=== PATIENT | female | born 1995 | race Caucasian/White ===

== ENCOUNTER 2018-11-24 16:22 | Inpatient (IN) | payer BC ==
[2018-11-24] MEDS ORDERED: Nalbuphine 20 MG/ML 1 ML Syringe IVPUSH PRN (17:10)
[2018-11-24] MEDS ORDERED: Ondansetron 4 MG/2 ML SDV IVPUSH PRN ×2 (17:10→19:25)
[2018-11-24] MEDS ORDERED: Sodium Chloride 0.9% 10 ML Syringe FLUSH PRN (17:10)
[2018-11-24] MEDS ORDERED: Oxytocin/Lactated Ringers 10 UNIT/1,000 ML BAG IV SCH ×2 (17:15→23:00)
--- NOTE | 2018-11-24 17:25 | PCM.LDHP ---
L&D History of Present Illness - General Date of Service: 11/24/18 Admit Problem/Dx: Patient Status Order with Admit Dx/Problem 11/24/18 17:10 Patient Status [ADT] Routine Admission Diagnosis/Problem Admission Diagnosis/Problem Source of Information: Patient History Limitations: Reports: No Limitations - History of Present Illness Introduction:: Patient is a 23 y/o at 40 0/7 wks who presents in labor. Contraction started around 0300. THey ahve gotten steadily worse throughout the day. Started to become very intense around 1500. No LOF or VB. No other concerns. 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): Psychiatric History: Reports: Anxiety Social & Family History - Tobacco Use Smoking Status *Q: Never Smoker - Alcohol Use Alcohol Use History: No - Recreational Drug Use Recreational Drug Use: No H&P Review of Systems - Review of Systems: Review Of Systems: See Below General: Reports: No Symptoms Pulmonary: Reports: No Symptoms Cardiovascular: Reports: No Symptoms Gastrointestinal: Reports: Abdominal Pain Genitourinary: Reports: No Symptoms Musculoskeletal: Reports: No Symptoms L&D Exam - Exam Exam: See Below - Vital Signs Weight: 93.304 kg - OB Specific Contraction Intensity: Moderate Movement: Active Heart Tones: Present Heart Tones per Min: 155 Heart Rate (FHR) Variability: Moderate (6-25 bmp) Presentation: Vertex - Lim Score Lim Score Cervix Position: Anterior Lim Score Consistency: Soft Lim Score Effacement: >80% Lim Score Dilation: > 5 cm Lim Score 's Station: -1 ,0 Lim Score Total: 12 - Exam General: Alert, Oriented, Cooperative Lungs: Clear to Auscultation, Normal Respiratory Effort Cardiovascular: Regular Rate, Regular Rhythm GI/Abdominal Exam: Soft, Non-Tender Genitourinary: Normal external exam Extremities: Normal Inspection Skin: Warm, Dry, Intact - Patient Data Result Diagrams: 11/24/18 17:25 - Problem List (1) 40 weeks gestation of SNOMED Code(s): 19193455 ICD Code: Z3A.40 - 40 WEEKS GESTATION OF Status: Acute Current Visit: Yes (2) Normal labor SNOMED Code(s): 38383536 ICD Code: O80 - ENCOUNTER FOR FULL-TERM UNCOMPLICATED DELIVERY; Z37.9 - OUTCOME OF DELIVERY, UNSPECIFIED Status: Acute Current Visit: Yes (3) Anxiety SNOMED Code(s): 07271669 ICD Code: F41.9 - ANXIETY DISORDER, UNSPECIFIED Status: Acute Current Visit: Yes Problem List Initiated/Reviewed/Updated: Yes Orders Last 24hrs: Active Orders 24 hr Category Date Time Status Patient Status [ADT] Routine ADT 11/24/18 17:10 Active Activity as Tolerated [RC] PFP Care 11/24/18 17:10 Active Communication Order [RC] ASDIRECTED Care 11/24/18 17:10 Active Heart Tones [RC] ASDIRECTED Care 11/24/18 17:11 Active Non Stress Test [RC] PER UNIT ROUTINE Care 11/24/18 17:10 Active Notify Provider [RC] PFP Care 11/24/18 17:10 Active Notify Provider [RC] PRN Care 11/24/18 17:10 Active Peripheral IV Care [RC] . DIRECTED Care 11/24/18 17:11 Active Pump Management, Intrathecal [RC] ASDIRECTED Care 11/24/18 17:11 Active Urinary Catheter Assessment [RC] ASDIRECTED Care 11/24/18 17:10 Active Vital Signs [RC] PER UNIT ROUTINE Care 11/24/18 17:10 Active Regular Diet [DIET] Diet 11/24/18 Breakfast Active CBC WITH AUTO DIFF [HEME] Routine Lab 11/24/18 17:10 Ordered RAPID PLASMA REAGIN,RPR [CHEM] Routine Lab 11/24/18 17:10 Ordered TYPE AND SCREEN [BBK] Routine Lab 11/24/18 17:10 Ordered Lactated Ringers [Ringers, Lactated] 1,000 ml Med 11/24/18 17:15 Active IV ASDIRECTED Nalbuphine [Nubain] Med 11/24/18 17:10 Active 10 mg IVPUSH Q2H PRN Ondansetron [Zofran] Med 11/24/18 17:10 Active 4 mg IVPUSH Q4H PRN Oxytocin/Lactated Ringers [Pitocin in LR 10 Units/1,000 Med 11/24/18 17:15 Active ML] 10 unit in 1,000 ml IV .CONTINUOUS Sodium Chloride 0.9% [Saline Flush] Med 11/24/18 17:10 Active 10 ml FLUSH ASDIRECTED PRN Electronic Heart Tones Ext w TOCO [WOMSER] Oth 11/24/18 17:10 Ordered Routine Electronic Heart Tones Internal [WOMSER] Per Unit Oth 11/24/18 17:10 Ordered Routine Peripheral IV Insertion Adult [OM.PC] Routine Oth 11/24/18 17:10 Ordered Resuscitation Status Routine Resus Stat 11/24/18 17:10 Ordered Medication Orders Lactated Ringer's (Ringers, Lactated) 1,000 mls @ 100 mls/hr IV ASDIRECTED ROBIN Oxytocin/Lactated Ringer's (Pitocin In Lr 10 Units/1,000 Ml) 10 unit in 1,000 mls @ 500 mls/hr IV .CONTINUOUS ROBIN Nalbuphine HCl (Nubain) 10 mg IVPUSH Q2H PRN PRN Reason: pain Ondansetron HCl (Zofran) 4 mg IVPUSH Q4H PRN PRN Reason: Nausea/Vomiting Sodium Chloride (Saline Flush) 10 ml FLUSH ASDIRECTED PRN PRN Reason: Keep Vein Open Assessment/Plan Comment:: 23 y/o at 40 0/7 wks who presents in labor * Labs on admission * GBS negative, no need for antibiotics * Pain management per patient preference * Anticipate * Continue Lexapro
[2018-11-24] MEDS: Lactated Ringers 1,000 ML IV SCH ×4 (18:25→21:08)
[2018-11-24] MEDS ORDERED: ePHEDrine 50 MG/ML SDV IVPUSH PRN (19:25)
[2018-11-24] MEDS ORDERED: diphenhydrAMINE 50 MG/ML SDV IVPUSH PRN (19:25)
[2018-11-24] MEDS ORDERED: fentaNYL 100 MCG/2 ML SDV EPIDUR PRN (19:25)
[2018-11-24] MEDS: fentaNYL/Bupivacaine-NS 2 MCG/ML-0.125%/PF 100 ML Bag EP SCH (20:01)
--- NOTE | 2018-11-24 20:04 | PCM.PREANE ---
Preanesthetic Assessment - Anesthesia/Transfusion/Family Hx Anesthesia History: No Prior Anesthesia Family History of Anesthesia Reaction: No Transfusion History: No Prior Transfusion(s) - Review of Systems General: No Symptoms Pulmonary: No Symptoms Cardiovascular: No Symptoms Gastrointestinal: Other (Occasional while laying down in bed. ) Neurological: No Symptoms Other: Reports: Anxiety - Physical Assessment O2 Sat by Pulse Oximetry: 98 Respiratory Rate: 16 Vital Signs: Last Vital Signs Temp 36.8 C 11/24/18 17:10 Pulse 106 H 11/24/18 17:10 Resp 16 11/24/18 17:10 BP 136/99 H 11/24/18 17:10 Pulse Ox Height: 1.63 m Weight: 93.304 kg ASA Class: 2 Mental Status: Alert & Oriented x3 Dentition: Reports: Normal Dentition Thyro-Mental Finger Breadths: 3 Mouth Opening Finger Breadths: 3 ROM/Head Extension: Full Lungs: Clear to Auscultation, Normal Respiratory Effort Cardiovascular: Regular Rate, Regular Rhythm - Lab Values: Laboratory Last Values WBC 15.29 K/mm3 (3.98-10.04) H 11/24/18 17:25 RBC 5.09 M/mm3 (3.98-5.22) 11/24/18 17:25 Hgb 13.2 gm/L (11.2-15.7) 11/24/18 17:25 Hct 39.8 % (34.1-44.9) 11/24/18 17:25 MCV 78.2 fl (79.4-94.8) L 11/24/18 17:25 MCH 25.9 pg (25.6-32.2) 11/24/18 17:25 MCHC 33.2 g/dl (32.2-35.5) 11/24/18 17:25 RDW Std Deviation 56.3 fL (36.4-46.3) H 11/24/18 17:25 Plt Count 440 K/mm3 (182-369) H 11/24/18 17:25 MPV 9.4 fl (9.4-12.3) 11/24/18 17:25 Neut % (Auto) 83.4 % (34.0-71.1) H 11/24/18 17:25 Lymph % (Auto) 9.5 % (19.3-51.7) L 11/24/18 17:25 [place] % (Auto) 6.3 % (4.7-12.5) 11/24/18 17:25 Eos % (Auto) 0.3 (0.7-5.8) L 11/24/18 17:25 Baso % (Auto) 0.1 % (0.1-1.2) 11/24/18 17:25 Neut # (Auto) 12.75 K/mm3 (1.56-6.13) H 11/24/18 17:25 Lymph # (Auto) 1.46 K/mm3 (1.18-3.74) 11/24/18 17:25 [place] # (Auto) 0.96 K/mm3 (0.24-0.36) H 11/24/18 17:25 Eos # (Auto) 0.04 K/mm3 (0.04-0.36) 11/24/18 17: Baso # (Auto) 0.02 K/mm3 (0.01-0.08) 11/24/18 17:25 Manual Slide Review Normal smear 11/24/18 17:25 Blood Type A POSITIVE 11/24/18 17: Gel Antibody Screen Negative 11/24/18 17:25 - Allergies Allergies/Adverse Reactions: Allergies Allergy/AdvReac Type Severity Reaction Status Date / Time No Known Allergies Allergy Verified 03/31/15 15:56 - Acknowledgements Anesthesia Type Planned: Epidural Pt an Appropriate Candidate for the Planned Anesthesia: Yes Alternatives and Risks of Anesthesia Discussed w Pt/Guardian: Yes Pt/Guardian Understands and Agrees with Anesthesia Plan: Yes PreAnesthesia Questionnaire - Past Health History Medical/Surgical History: Denies 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: Psychiatric History: Reports: Anxiety - SUBSTANCE USE Smoking Status *Q: Never Smoker Second Hand Smoke Exposure: No Recreational Drug Use History: No - HOME MEDS Home Medications: Home Meds Escitalopram [Lexapro] 1 tab PO DAILY 11/24/18 [History] PNV95/Ferrous Fumarate/FA [ Vitamin Tablet] 1 tab PO DAILY 11/24/18 [ History] - CURRENT (IN HOUSE) MEDS Current Meds: Current Medications Diphenhydramine HCl (Benadryl) 25 mg IVPUSH Q6H PRN PRN Reason: Pruritis Ephedrine Sulfate (Ephedrine Sulfate) 5 mg IVPUSH ASDIRECTED PRN PRN Reason: Hypotension Fentanyl (Sublimaze) 100 mcg EPIDUR ONETIME PRN PRN Reason: Pain Last Admin: 11/24/18 19:57 Dose: 100 mcg Fentanyl/Bupivacaine HCl (Nsueghkn-Dndmh-Xo 2 Mcg/Ml-0.125%) 100 ml EP ASDIRECTED [facility] Last Admin: 11/24/18 20:01 Dose: 100 ml Lactated Ringer's (Ringers, Lactated) 1,000 mls @ 100 mls/hr IV ASDIRECTED [facility] Last Admin: 11/24/18 19:24 Dose: 999 mls/hr Oxytocin/Lactated Ringer's (Pitocin In Lr 10 Units/1,000 Ml) 10 unit in 1,000 mls @ 500 mls/hr IV .CONTINUOUS [facility] Nalbuphine HCl (Nubain) 10 mg IVPUSH Q2H PRN PRN Reason: pain Ondansetron HCl (Zofran) 4 mg IVPUSH Q4H PRN PRN Reason: Nausea/Vomiting Ondansetron HCl (Zofran) 4 mg IVPUSH ONETIME PRN PRN Reason: Nausea/Vomiting Sodium Chloride (Saline Flush) 10 ml FLUSH ASDIRECTED PRN PRN Reason: Keep Vein Open
[2018-11-24] MEDS ORDERED: Lidocaine 1.5% with EPINEPHrine 1:200,000 5 ML Amp ONE (22:00)
[2018-11-24] MEDS ORDERED: Bupivacaine 0.25% 10 ML SDV ONE (22:00)
[2018-11-25] MEDS: Lactated Ringers 1,000 ML IV SCH ×2 (00:12→01:03)
[2018-11-25] MEDS: fentaNYL/Bupivacaine-NS 2 MCG/ML-0.125%/PF 100 ML Bag EP SCH (01:41)
--- NOTE | 2018-11-25 01:51 | PCM.PNLD ---
Labor Progress Note - VS & Meds Vital Signs: Last Vital Signs Temp 36.8 C 11/24/18 17:10 Pulse 99 11/25/18 00:30 Resp 16 11/24/18 20:03 BP 125/75 11/25/18 00:30 Pulse Ox 98 11/24/18 20:03 Active Medications: Current Medications Diphenhydramine HCl (Benadryl) 25 mg IVPUSH Q6H PRN PRN Reason: Pruritis Ephedrine Sulfate (Ephedrine Sulfate) 5 mg IVPUSH ASDIRECTED PRN PRN Reason: Hypotension Fentanyl (Sublimaze) 100 mcg EPIDUR ONETIME PRN PRN Reason: Pain Last Admin: 11/24/18 19:57 Dose: 100 mcg Fentanyl/Bupivacaine HCl (Dnjzqeqo-Gwqyc-Ud 2 Mcg/Ml-0.125%) 100 ml EP ASDIRECTED ROBIN Last Admin: 11/25/18 01:41 Dose: 100 ml Lactated Ringer's (Ringers, Lactated) 1,000 mls @ 100 mls/hr IV ASDIRECTED ROBIN Last Admin: 11/25/18 01:03 Dose: 125 mls/hr Oxytocin/Lactated Ringer's (Pitocin In Lr 10 Units/1,000 Ml) 10 unit in 1,000 mls @ 500 mls/hr IV .CONTINUOUS ROBIN Oxytocin/Lactated Ringer's (Pitocin In Lr 10 Units/1,000 Ml) 10 unit in 1,000 mls @ 12 mls/hr IV TITRATE ROBIN; Protocol Last Titration: 11/25/18 00:05 Dose: 0 munits/min, 0 mls/hr Nalbuphine HCl (Nubain) 10 mg IVPUSH Q2H PRN PRN Reason: pain Ondansetron HCl (Zofran) 4 mg IVPUSH Q4H PRN PRN Reason: Nausea/Vomiting Ondansetron HCl (Zofran) 4 mg IVPUSH ONETIME PRN PRN Reason: Nausea/Vomiting Sodium Chloride (Saline Flush) 10 ml FLUSH ASDIRECTED PRN PRN Reason: Keep Vein Open Discontinued Medications Oxytocin 10 unit/ Lactated (Ringer's) 1,001 mls @ 12.01 mls/hr IV TITRATE ROBIN; Protocol - Uterine Contractions Uterine Monitoring Mode: External [place] Contraction Intensity: Moderate to Strong - Monitoring Monitor Mode: External Ultrasound Heart Rate (FHR) Variability: Moderate (6-25 bmp) Accelerations: Present, 15x15 Decelerations: Early, Late (rare), Variable Strip Review: Category II - Vaginal Exam Dilation (cm): 9 Effacement (Percent): 90 Station: -1 Cervical Position: Anterior - Labor Progress (Free Text) Labor Progress: 0115 In to assess patient. Was called by nursing staff at 1215 that there was a prolonged deceleration into the 90's. Pitocin off and baby recovered. I presented to AROM patient, but she had actually SROM'd about 20 minutes prior to my arrival. On review of tracing however I had concerns for possible intermittent and possible small time of recurrent late decelerations. At the current time variability is moderate and only early type decelerations noted. Was going to place an IUPC, but patient found to be 9 cm, but potentially asynclitic position. Decision instead made to put patient in hands/knees. Will continue to monitor status closely
--- NOTE | 2018-11-25 04:26 | PCM.DEL ---
L & D Note - General Info Date of Service: 11/25/18 - Delivery Note Labor: Augmented by ARM, Augmented by Oxytocin Delivery Outcome: Livebirth Infant Delivery Method: Spontaneous Vaginal Delivery-Single Delivery Mode: Spontaneous Presentation: Right Occiput Anterior (KAREEN) Nuchal Cord: None Anesthesia Type: Epidural Amniotic Fluid Description: Clear Episiotomy Type: None Laceration: 2nd Degree, Labial (left sided) Suture type: Vicryl Suture size: 2-0 Placenta: Intact, Spontaneous Cord: 3 Vessels Estimated Blood Loss: 200 Resuscitation Needed: Yes : Bulb Syringe, Stimulated, Warmed, [place] Used, Warmer Used Delivery Comments (Free Text/Narrative):: Patient found to be complete and began pushing. With maternal pushing effort head delivered from an KAREEN presentation. No nuchal cord present. With gentle downward traction the shoulders and body delivered. placed on maternal abdomen. Cord clamped and cut. Cord blood obtained. Placenta allowed time to separate and expelled intact. Inspection of the perineum showed a 2nd degree laceration which was repaired with a 2-0 vicryl in the typical fashion. - General Info Date of Service: 11/25/18 - Patient Data Vitals - Most Recent: Last Vital Signs Temp 36.8 C 11/24/18 17:10 Pulse 99 11/25/18 00:30 Resp 16 11/24/18 20:03 BP 125/75 11/25/18 00:30 Pulse Ox 98 11/24/18 20:03 Weight - Most Recent: 93.304 kg I&O - Last 24 Hours: Intake & Output 11/24/18 11/24/18 11/25/18 14:59 22:59 06:59 Intake Total 1000 3000 Balance 1000 3000 Lab Results Last 24 Hours: Laboratory Results - last 24 hr 11/24/18 11/24/18 Range/Units 17:25 17:25 WBC 15.29 H (3.98-10.04) K/mm3 RBC 5.09 (3.98-5.22) M/mm3 Hgb 13.2 (11.2-15.7) gm/L Hct 39.8 (34.1-44.9) % MCV 78.2 L (79.4-94.8) fl MCH 25.9 (25.6-32.2) pg MCHC 33.2 (32.2-35.5) g/dl RDW Std Deviation 56.3 H (36.4-46.3) fL Plt Count 440 H (182-369) K/mm3 MPV 9.4 (9.4-12.3) fl Neut % (Auto) 83.4 H (34.0-71.1) % Lymph % (Auto) 9.5 L (19.3-51.7) % [place] % (Auto) 6.3 (4.7-12.5) % Eos % (Auto) 0.3 L (0.7-5.8) Baso % (Auto) 0.1 (0.1-1.2) % Neut # (Auto) 12.75 H (1.56-6.13) K/mm3 Lymph # (Auto) 1.46 (1.18-3.74) K/mm3 [place] # (Auto) 0.96 H (0.24-0.36) K/mm3 Eos # (Auto) 0.04 (0.04-0.36) K/mm3 Baso # (Auto) 0.02 (0.01-0.08) K/mm3 Manual Slide Review Normal smear Blood Type A POSITIVE Gel Antibody Screen Negative Med Orders - Current: Current Medications Diphenhydramine HCl (Benadryl) 25 mg IVPUSH Q6H PRN PRN Reason: Pruritis Ephedrine Sulfate (Ephedrine Sulfate) 5 mg IVPUSH ASDIRECTED PRN PRN Reason: Hypotension Fentanyl (Sublimaze) 100 mcg EPIDUR ONETIME PRN PRN Reason: Pain Last Admin: 11/24/18 19:57 Dose: 100 mcg Fentanyl/Bupivacaine HCl (Tvgnfcug-Sjqrd-Ws 2 Mcg/Ml-0.125%) 100 ml EP ASDIRECTED ROBIN Last Admin: 11/25/18 01:41 Dose: 100 ml Lactated Ringer's (Ringers, Lactated) 1,000 mls @ 100 mls/hr IV ASDIRECTED ROBIN Last Admin: 11/25/18 01:03 Dose: 125 mls/hr Oxytocin/Lactated Ringer's (Pitocin In Lr 10 Units/1,000 Ml) 10 unit in 1,000 mls @ 500 mls/hr IV .CONTINUOUS ROBIN Oxytocin/Lactated Ringer's (Pitocin In Lr 10 Units/1,000 Ml) 10 unit in 1,000 mls @ 12 mls/hr IV TITRATE ROBIN; Protocol Last Titration: 11/25/18 00:05 Dose: 0 munits/min, 0 mls/hr Nalbuphine HCl (Nubain) 10 mg IVPUSH Q2H PRN PRN Reason: pain Ondansetron HCl (Zofran) 4 mg IVPUSH Q4H PRN PRN Reason: Nausea/Vomiting Ondansetron HCl (Zofran) 4 mg IVPUSH ONETIME PRN PRN Reason: Nausea/Vomiting Sodium Chloride (Saline Flush) 10 ml FLUSH ASDIRECTED PRN PRN Reason: Keep Vein Open Discontinued Medications Oxytocin 10 unit/ Lactated (Ringer's) 1,001 mls @ 12.01 mls/hr IV TITRATE ROBIN; Protocol - Problem List & Annotations (1) 40 weeks gestation of SNOMED Code(s): 53277674 Code(s): Z3A.40 - 40 WEEKS GESTATION OF Status: Acute Current Visit: Yes (2) Normal labor SNOMED Code(s): 78828124 Code(s): O80 - ENCOUNTER FOR FULL-TERM UNCOMPLICATED DELIVERY; Z37.9 - OUTCOME OF DELIVERY, UNSPECIFIED Status: Acute Current Visit: Yes (3) Anxiety SNOMED Code(s): 52649993 Code(s): F41.9 - ANXIETY DISORDER, UNSPECIFIED Status: Acute Current Visit: Yes (4) Vaginal delivery SNOMED Code(s): 125760872 Code(s): O80 - ENCOUNTER FOR FULL-TERM UNCOMPLICATED DELIVERY Status: Acute Current Visit: Yes - Problem List Review Problem List Initiated/Reviewed/Updated: Yes - My Orders Last 24 Hours: My Active Orders 11/24/18 17:10 Patient Status [ADT] Routine Activity as Tolerated [RC] PFP Communication Order [RC] ASDIRECTED Notify Provider [RC] PFP Notify Provider [RC] PRN Urinary Catheter Assessment [RC] ASDIRECTED Vital Signs [RC] PER UNIT ROUTINE Nalbuphine [Nubain] 10 mg IVPUSH Q2H PRN Ondansetron [Zofran] 4 mg IVPUSH Q4H PRN Sodium Chloride 0.9% [Saline Flush] 10 ml FLUSH ASDIRECTED PRN Electronic Heart Tones Ext w TOCO [WOMSER] Routine Electronic Heart Tones Internal [WOMSER] Per Unit Routine Peripheral IV Insertion Adult [OM.PC] Routine Resuscitation Status Routine 11/24/18 17:11 Peripheral IV Care [RC] Q2HR 11/24/18 17:15 Lactated Ringers [Ringers, Lactated] 1,000 ml IV ASDIRECTED Oxytocin/Lactated Ringers [Pitocin in LR 10 Units/1,000 ML] 10 unit in 1,000 ml IV .CONTINUOUS 11/24/18 17:25 RAPID PLASMA REAGIN,RPR [CHEM] Routine 11/24/18 20:26 May Take Own Home Medications [OM.PC] Routine 11/24/18 23:00 Oxytocin/Lactated Ringers [Pitocin in LR 10 Units/1,000 ML] 10 unit in 1,000 ml IV TITRATE 11/24/18 Breakfast Regular Diet [DIET] 11/25/18 04:23 Patient Status Manage Transfer [TRANSFER] Routine - Assessment Assessment:: 23 y/o G1 now P1001 PPD#0 from at 40 1/7 wks - Plan Plan:: * Routine cares * Encourage breast feeding * Discharge home in 2 days * Continue Lexapro
[2018-11-25] MEDS ORDERED: Witch Hazel Medicated Pads 100/Jar TOP PRN (04:51)
[2018-11-25] MEDS ORDERED: Lanolin 100% Cream 7 GM Tube TOP PRN (04:51)
[2018-11-25] MEDS ORDERED: Benzocaine/Menthol 20%-0.5% Spray 56 GM Canister TOP PRN (04:51)
[2018-11-25] MEDS ORDERED: Acetaminophen 325 MG Tab PO PRN (04:51)
[2018-11-25] MEDS: Docusate Sodium 100 MG Cap PO PRN (06:12)
[2018-11-25] MEDS: Ibuprofen 600 MG Tab PO PRN ×2 (06:12→15:11)
--- NOTE | 2018-11-25 09:40 | PCM48HPAN ---
Post Anesthesia Note - EVALUATION WITHIN 48HRS OF ANESTHETIC Vital Signs in Normal Range: Yes Patient Participated in Evaluation: Yes Respiratory Function Stable: Yes Airway Patent: Yes Cardiovascular Function Stable: Yes Hydration Status Stable: Yes Pain Control Satisfactory: Yes Nausea and Vomiting Control Satisfactory: Yes Mental Status Recovered: Yes - COMMENTS/OBSERVATIONS Free Text/Narrative:: Patient denies any symptoms of PDPH, back pain, and any residual numbness or tingling to LE. Doing well, resting in bed.
[2018-11-26] MEDS: Ibuprofen 600 MG Tab PO PRN (04:16)
--- NOTE | 2018-11-26 08:34 | PCM.PNPP ---
- General Info Date of Service: 11/26/18 Functional Status: Reports: Pain Controlled, Tolerating Diet, Ambulating, Urinating - Review of Systems General: Reports: No Symptoms Pulmonary: Reports: No Symptoms Cardiovascular: Reports: No Symptoms Gastrointestinal: Reports: No Symptoms Genitourinary: Reports: No Symptoms Musculoskeletal: Reports: No Symptoms Neurological: Reports: No Symptoms - Patient Data Vital Signs - Most Recent: Last Vital Signs Temp 36.6 C 11/26/18 04:15 Pulse 89 11/26/18 04:15 Resp 15 11/26/18 04:15 BP 124/85 11/26/18 04:15 Pulse Ox 98 11/26/18 04:15 Weight - Most Recent: 93.304 kg Lab Results - Last 24 Hours: Laboratory Results - last 24 hr 11/24/18 Range/Units 17:25 RPR Non-reactive (NONREACTIVE) Med Orders - Current: Current Medications Acetaminophen (Tylenol) 650 mg PO Q4H PRN PRN Reason: mild pain or fever Benzocaine/Menthol (Dermoplast Pain Relief [place]) 0 gm TOP ASDIRECTED PRN PRN Reason: Perineal Comfort Measure Last Admin: 11/25/18 06:11 Dose: 1 can Docusate Sodium (Colace) 100 mg PO BID PRN PRN Reason: Constipation Last Admin: 11/25/18 06:12 Dose: 100 mg Emollient Ointment (Lansinoh Hpa) 0 gm TOP ASDIRECTED PRN PRN Reason: Sore Nipples Last Admin: 11/25/18 06:12 Dose: 1 tube Ibuprofen (Motrin) 600 mg PO Q6H PRN PRN Reason: Mild pain or fever Last Admin: 11/26/18 04:16 Dose: 600 mg Witch Ana (Tucks) 1 pad TOP ASDIRECTED PRN PRN Reason: Hemorrhoid pain Last Admin: 11/25/18 06:11 Dose: 1 container Discontinued Medications Bupivacaine HCl (Sensorcaine-Mpf 0.25%) 10 ml .ROUTE .STK-MED ONE Stop: 11/24/18 22:01 Diphenhydramine HCl (Benadryl) 25 mg IVPUSH Q6H PRN PRN Reason: Pruritis Ephedrine Sulfate (Ephedrine Sulfate) 5 mg IVPUSH ASDIRECTED PRN PRN Reason: Hypotension Fentanyl (Sublimaze) 100 mcg EPIDUR ONETIME PRN PRN Reason: Pain Last Admin: 11/24/18 19:57 Dose: 100 mcg Fentanyl/Bupivacaine HCl (Edhlbamd-Jxehb-Bw 2 Mcg/Ml-0.125%) 100 ml EP ASDIRECTED ROBIN Last Admin: 11/25/18 01:41 Dose: 100 ml Lactated Ringer's (Ringers, Lactated) 1,000 mls @ 100 mls/hr IV ASDIRECTED ROBIN Last Admin: 11/25/18 01:03 Dose: 125 mls/hr Oxytocin/Lactated Ringer's (Pitocin In Lr 10 Units/1,000 Ml) 10 unit in 1,000 mls @ 500 mls/hr IV .CONTINUOUS ROBIN Oxytocin 10 unit/ Lactated (Ringer's) 1,001 mls @ 12.01 mls/hr IV TITRATE ROBIN; Protocol Oxytocin/Lactated Ringer's (Pitocin In Lr 10 Units/1,000 Ml) 10 unit in 1,000 mls @ 12 mls/hr IV TITRATE ROBIN; Protocol Last Titration: 11/25/18 03:54 Dose: 999 mls/hr Lidocaine/Epinephrine (Xylocaine-Mpf 1.5% W/Epinephrine 1:200,000) 5 ml .ROUTE .[facility]-MED ONE Stop: 11/24/18 22:01 Nalbuphine HCl (Nubain) 10 mg IVPUSH Q2H PRN PRN Reason: pain Ondansetron HCl (Zofran) 4 mg IVPUSH Q4H PRN PRN Reason: Nausea/Vomiting Ondansetron HCl (Zofran) 4 mg IVPUSH ONETIME PRN PRN Reason: Nausea/Vomiting Sodium Chloride (Saline Flush) 10 ml FLUSH ASDIRECTED PRN PRN Reason: Keep Vein Open - Interaction Disposition, : in Room with Family Interaction: Holding Infant Feeding: Attempted ; Nursed Fair/Poor, Bottle Fed Infant Support Person: - Recovery Exam Fundal Tone: Firm Fundal Level: At Umbilicus Fundal Placement: Midline Lochia Amount: Small, Moderate Lochia Color: Rubra/Red Bladder Status: Voiding Urinary Elimination: Voided - Exam General: Alert, Oriented, Cooperative GI/Abdominal Exam: Soft, Non-Tender Extremities: Normal Inspection Skin: Warm, Dry, Intact - Problem List & Annotations (1) 40 weeks gestation of SNOMED Code(s): 35738150 Code(s): Z3A.40 - 40 WEEKS GESTATION OF Status: Acute Current Visit: Yes (2) Normal labor SNOMED Code(s): 54402639 Code(s): O80 - ENCOUNTER FOR FULL-TERM UNCOMPLICATED DELIVERY; Z37.9 - OUTCOME OF DELIVERY, UNSPECIFIED Status: Acute Current Visit: Yes (3) Anxiety SNOMED Code(s): 56967231 Code(s): F41.9 - ANXIETY DISORDER, UNSPECIFIED Status: Acute Current Visit: Yes (4) Vaginal delivery SNOMED Code(s): 459196090 Code(s): O80 - ENCOUNTER FOR FULL-TERM UNCOMPLICATED DELIVERY Status: Acute Current Visit: Yes - Problem List Review Problem List Initiated/Reviewed/Updated: Yes - My Orders Last 24 Hours: My Active Orders 11/26/18 04:51 Heat Therapy [OM.PC] PRN - Assessment Assessment:: 23 y/o G1 now P1001 PPD#1 from at 40 1/7 wks - Plan Plan:: * Routine cares * Encourage breast feeding * Discharge home tomorrow * Continue Lexapro
[2018-11-26] MEDS: Docusate Sodium 100 MG Cap PO PRN (18:44)
--- NOTE | 2018-11-27 08:55 | PCM.PNPP ---
- General Info Date of Service: 11/27/18 Functional Status: Reports: Pain Controlled, Tolerating Diet, Ambulating, Urinating - Review of Systems General: Reports: No Symptoms Pulmonary: Reports: No Symptoms Cardiovascular: Reports: No Symptoms Gastrointestinal: Reports: No Symptoms Genitourinary: Reports: No Symptoms Musculoskeletal: Reports: No Symptoms Neurological: Reports: No Symptoms - Patient Data Vital Signs - Most Recent: Last Vital Signs Temp 36.8 C 11/27/18 03:00 Pulse 118 H 11/27/18 03:00 Resp 18 11/27/18 03:00 BP 128/70 11/27/18 03:00 Pulse Ox 100 11/27/18 03:00 Weight - Most Recent: 93.304 kg I&O - Last 24 Hours: Intake & Output 11/26/18 11/27/18 11/27/18 22:59 06:59 14:59 Intake Total 0 Balance 0 Med Orders - Current: Current Medications Acetaminophen (Tylenol) 650 mg PO Q4H PRN PRN Reason: mild pain or fever Benzocaine/Menthol (Dermoplast Pain Relief [place]) 0 gm TOP ASDIRECTED PRN PRN Reason: Perineal Comfort Measure Last Admin: 11/25/18 06:11 Dose: 1 can Docusate Sodium (Colace) 100 mg PO BID PRN PRN Reason: Constipation Last Admin: 11/26/18 18:44 Dose: 100 mg Emollient Ointment (Lansinoh Hpa) 0 gm TOP ASDIRECTED PRN PRN Reason: Sore Nipples Last Admin: 11/25/18 06:12 Dose: 1 tube Ibuprofen (Motrin) 600 mg PO Q6H PRN PRN Reason: Mild pain or fever Last Admin: 11/26/18 04:16 Dose: 600 mg Witch Ana (Tucks) 1 pad TOP ASDIRECTED PRN PRN Reason: Hemorrhoid pain Last Admin: 11/25/18 06:11 Dose: 1 container Discontinued Medications Bupivacaine HCl (Sensorcaine-Mpf 0.25%) 10 ml .ROUTE .STK-MED ONE Stop: 11/24/18 22:01 Diphenhydramine HCl (Benadryl) 25 mg IVPUSH Q6H PRN PRN Reason: Pruritis Ephedrine Sulfate (Ephedrine Sulfate) 5 mg IVPUSH ASDIRECTED PRN PRN Reason: Hypotension Fentanyl (Sublimaze) 100 mcg EPIDUR ONETIME PRN PRN Reason: Pain Last Admin: 11/24/18 19:57 Dose: 100 mcg Fentanyl/Bupivacaine HCl (Bmnvqiha-Lqfox-Sx 2 Mcg/Ml-0.125%) 100 ml EP ASDIRECTED ROBIN Last Admin: 11/25/18 01:41 Dose: 100 ml Lactated Ringer's (Ringers, Lactated) 1,000 mls @ 100 mls/hr IV ASDIRECTED ROBIN Last Admin: 11/25/18 01:03 Dose: 125 mls/hr Oxytocin/Lactated Ringer's (Pitocin In Lr 10 Units/1,000 Ml) 10 unit in 1,000 mls @ 500 mls/hr IV .CONTINUOUS ROBIN Oxytocin 10 unit/ Lactated (Ringer's) 1,001 mls @ 12.01 mls/hr IV TITRATE ROBIN; Protocol Oxytocin/Lactated Ringer's (Pitocin In Lr 10 Units/1,000 Ml) 10 unit in 1,000 mls @ 12 mls/hr IV TITRATE ROBIN; Protocol Last Titration: 11/25/18 03:54 Dose: 999 mls/hr Lidocaine/Epinephrine (Xylocaine-Mpf 1.5% W/Epinephrine 1:200,000) 5 ml .ROUTE .[facility]-MED ONE Stop: 11/24/18 22:01 Nalbuphine HCl (Nubain) 10 mg IVPUSH Q2H PRN PRN Reason: pain Ondansetron HCl (Zofran) 4 mg IVPUSH Q4H PRN PRN Reason: Nausea/Vomiting Ondansetron HCl (Zofran) 4 mg IVPUSH ONETIME PRN PRN Reason: Nausea/Vomiting Sodium Chloride (Saline Flush) 10 ml FLUSH ASDIRECTED PRN PRN Reason: Keep Vein Open - Infant Interaction Disposition, : Cylinder in Room with Family Interaction: Holding Feeding: Attempted ; Nursed Fair/Poor, Bottle Fed Support Person: - Recovery Exam Fundal Tone: Firm Fundal Level: 1 Fingerbreadths Below Umbilicus Fundal Placement: Midline Lochia Amount: Scant, Small Lochia Color: Rubra/Red Episiotomy/Laceration: Approximated Bladder Status: Voiding Urinary Elimination: Voided - Exam General: Alert, Oriented, Cooperative GI/Abdominal Exam: Soft, Non-Tender Extremities: Normal Inspection Skin: Warm, Dry, Intact - Problem List & Annotations (1) 40 weeks gestation of SNOMED Code(s): 96516712 Code(s): Z3A.40 - 40 WEEKS GESTATION OF Status: Acute Current Visit: Yes (2) Normal labor SNOMED Code(s): 72945206 Code(s): O80 - ENCOUNTER FOR FULL-TERM UNCOMPLICATED DELIVERY; Z37.9 - OUTCOME OF DELIVERY, UNSPECIFIED Status: Acute Current Visit: Yes (3) Anxiety SNOMED Code(s): 54439229 Code(s): F41.9 - ANXIETY DISORDER, UNSPECIFIED Status: Acute Current Visit: Yes (4) Vaginal delivery SNOMED Code(s): 318496393 Code(s): O80 - ENCOUNTER FOR FULL-TERM UNCOMPLICATED DELIVERY Status: Acute Current Visit: Yes - Problem List Review Problem List Initiated/Reviewed/Updated: Yes - Assessment Assessment:: 23 y/o G1 now P1001 PPD#2 from at 40 1/7 wks - Plan Plan:: * Routine cares * Encourage breast feeding * Discharge home today * Continue Lexapro
--- NOTE | 2018-11-27 08:57 | PCM.DCSUM1 ---
Discharge Summary - Discharge Data Discharge Date: 11/27/18 Discharge Disposition: Home, Self-Care 01 Condition: Good - Discharge Diagnosis/Problem(s) (1) 40 weeks gestation of SNOMED Code(s): 74570978 ICD Code: Z3A.40 - 40 WEEKS GESTATION OF Status: Acute Current Visit: Yes (2) Normal labor SNOMED Code(s): 25486685 ICD Code: O80 - ENCOUNTER FOR FULL-TERM UNCOMPLICATED DELIVERY; Z37.9 - OUTCOME OF DELIVERY, UNSPECIFIED Status: Acute Current Visit: Yes (3) Anxiety SNOMED Code(s): 27829528 ICD Code: F41.9 - ANXIETY DISORDER, UNSPECIFIED Status: Acute Current Visit: Yes (4) Vaginal delivery SNOMED Code(s): 913170161 ICD Code: O80 - ENCOUNTER FOR FULL-TERM UNCOMPLICATED DELIVERY Status: Acute Current Visit: Yes - Patient Summary/Data Complications: None Consults: None Recommended Follow-up Testing/Procedures: Follow up in 3-6 weeks for check Hospital Course: 23 y/o at 40 0/7 wks who presented in labor. She progressed well and underwent an uncomplicated . See delivery note. she did well and was discharged home on PPD#2 - Patient Instructions Diet: Regular Diet as Tolerated Activity: As Tolerated Activity, Other: Pelvic Rest for 6 weeks Driving: May Drive Today Showering/Bathing: May Shower Showering/Bathing, Other: May bathe Notify Provider of: Fever, Increased Pain, Swelling and Redness, Drainage, Nausea and/or Vomiting - Discharge Plan *PRESCRIPTION DRUG MONITORING PROGRAM REVIEWED*: Not Applicable *COPY OF PRESCRIPTION DRUG MONITORING REPORT IN PATIENT OLGA: Not Applicable Home Medications: Home Meds Escitalopram [Lexapro] 1 tab PO DAILY 11/24/18 [History] PNV95/Ferrous Fumarate/FA [ Vitamin Tablet] 1 tab PO DAILY 11/24/18 [ History] Docusate Sodium [Colace] 100 mg PO BID PRN cap 11/25/18 [Rx] Ibuprofen [Motrin] 600 mg PO Q6H PRN tablet 11/25/18 [Rx] Referrals: Kassidy Rojas MD [Primary Care Provider] - (3-6 weeks for check ) - Discharge Summary/Plan Comment DC Time >30 min.: No - Patient Data Vitals - Most Recent: Last Vital Signs Temp 36.8 C 11/27/18 03:00 Pulse 118 H 11/27/18 03:00 Resp 18 11/27/18 03:00 BP 128/70 11/27/18 03:00 Pulse Ox 100 11/27/18 03:00 Weight - Most Recent: 93.304 kg I&O - Last 24 hours: Intake & Output 11/26/18 11/27/18 11/27/18 22:59 06:59 14:59 Intake Total 0 Balance 0 Med Orders - Current: Current Medications Acetaminophen (Tylenol) 650 mg PO Q4H PRN PRN Reason: mild pain or fever Benzocaine/Menthol (Dermoplast Pain Relief [place]) 0 gm TOP ASDIRECTED PRN PRN Reason: Perineal Comfort Measure Last Admin: 11/25/18 06:11 Dose: 1 can Docusate Sodium (Colace) 100 mg PO BID PRN PRN Reason: Constipation Last Admin: 11/26/18 18:44 Dose: 100 mg Emollient Ointment (Lansinoh Hpa) 0 gm TOP ASDIRECTED PRN PRN Reason: Sore Nipples Last Admin: 11/25/18 06:12 Dose: 1 tube Ibuprofen (Motrin) 600 mg PO Q6H PRN PRN Reason: Mild pain or fever Last Admin: 11/26/18 04:16 Dose: 600 mg Witch Ana (Tucks) 1 pad TOP ASDIRECTED PRN PRN Reason: Hemorrhoid pain Last Admin: 11/25/18 06:11 Dose: 1 container Discontinued Medications Bupivacaine HCl (Sensorcaine-Mpf 0.25%) 10 ml .ROUTE .[facility]-MED ONE Stop: 11/24/18 22:01 Diphenhydramine HCl (Benadryl) 25 mg IVPUSH Q6H PRN PRN Reason: Pruritis Ephedrine Sulfate (Ephedrine Sulfate) 5 mg IVPUSH ASDIRECTED PRN PRN Reason: Hypotension Fentanyl (Sublimaze) 100 mcg EPIDUR ONETIME PRN PRN Reason: Pain Last Admin: 11/24/18 19:57 Dose: 100 mcg Fentanyl/Bupivacaine HCl (Ialhquad-Ayhhg-Ne 2 Mcg/Ml-0.125%) 100 ml EP ASDIRECTED ROBIN Last Admin: 11/25/18 01:41 Dose: 100 ml Lactated Ringer's (Ringers, Lactated) 1,000 mls @ 100 mls/hr IV ASDIRECTED ROBIN Last Admin: 11/25/18 01:03 Dose: 125 mls/hr Oxytocin/Lactated Ringer's (Pitocin In Lr 10 Units/1,000 Ml) 10 unit in 1,000 mls @ 500 mls/hr IV .CONTINUOUS ROBIN Oxytocin 10 unit/ Lactated (Ringer's) 1,001 mls @ 12.01 mls/hr IV TITRATE ROBIN; Protocol Oxytocin/Lactated Ringer's (Pitocin In Lr 10 Units/1,000 Ml) 10 unit in 1,000 mls @ 12 mls/hr IV TITRATE ROBIN; Protocol Last Titration: 11/25/18 03:54 Dose: 999 mls/hr Lidocaine/Epinephrine (Xylocaine-Mpf 1.5% W/Epinephrine 1:200,000) 5 ml .ROUTE .[facility]-MED ONE Stop: 11/24/18 22:01 Nalbuphine HCl (Nubain) 10 mg IVPUSH Q2H PRN PRN Reason: pain Ondansetron HCl (Zofran) 4 mg IVPUSH Q4H PRN PRN Reason: Nausea/Vomiting Ondansetron HCl (Zofran) 4 mg IVPUSH ONETIME PRN PRN Reason: Nausea/Vomiting Sodium Chloride (Saline Flush) 10 ml FLUSH ASDIRECTED PRN PRN Reason: Keep Vein Open
[2018-11-27 12:27] VITALS: BP 118/77
== END 2018-11-27 12:15 | disposition home or self-care (01) | DRG 560 ==
LOC: JD.OBCHECK 16:22 → JD.OB 16:22 → JD.OBCHECK 17:10 → JD.OB 11-25 03:53 → OBSVTOIN 11-25 03:53
PROVIDERS: ADMIT Obstetrics & Gynecology; ATTEND Obstetrics & Gynecology
PROC: 3E0R3BZ Introduction of Anesthetic Agent into Spinal Canal, Percutaneous Approach (ICD-10-PCS; 2018-11-24)
PROC: 00HU33Z Insertion of Infusion Device into Spinal Canal, Percutaneous Approach (ICD-10-PCS; 2018-11-24)
PROC: 6A550ZT Pheresis of Cord Blood Stem Cells, Single (ICD-10-PCS; principal; 2018-11-25)
PROC: 0KQM0ZZ Repair Perineum Muscle, Open Approach (ICD-10-PCS; principal; 2018-11-25)
PROC: 10E0XZZ Delivery of Products of Conception, External Approach (ICD-10-PCS; principal; 2018-11-25)
DX: O99.344 Other mental disorders complicating childbirth (principal); F41.9 Anxiety disorder, unspecified; Z3A.40 40 weeks gestation of pregnancy; Z37.0 Single live birth; Z79.899 Other long term (current) drug therapy; O70.1 Second degree perineal laceration during delivery; O76 Abnormality in fetal heart rate and rhythm complicating labor and delivery
CPT/HCPCS: 01967; 36415; 51702; 59025; 59409; 85025; 86592; 86850; 86900; 86901; A9270-GY; J2590; J3010; J3490; J7120

== ENCOUNTER 2022-05-28 01:23 | Inpatient (IN) | payer BC ==
[~2022-05-28 01:23] MED LIST: Bupivacaine 0.25% 10 ML SDV ONE
[2022-05-28] MEDS ORDERED: Nalbuphine HCl 10 MG/ 1ML Amp IVPUSH PRN (01:54)
[2022-05-28] MEDS ORDERED: Oxytocin/Lactated Ringers 10 UNIT/1,000 ML BAG IV SCH ×2 (02:00)
[2022-05-28] MEDS ORDERED: diphenhydrAMINE 50 MG/ML SDV IVPUSH PRN (03:26)
[2022-05-28] MEDS ORDERED: fentaNYL 100 MCG/2 ML SDV EPIDUR PRN (03:26)
[2022-05-28] MEDS ORDERED: Bupivacaine/fentaNYL/NS 100 ML Bag EPIDUR PRN (03:26)
[2022-05-28] MEDS: Lactated Ringers 1,000 ML IV SCH ×2 (03:30→05:14)
[2022-05-28] MEDS: ePHEDrine 50 MG/ML SDV IVPUSH PRN ×2 (04:51→04:56)
[2022-05-28] MEDS ORDERED: Benzocaine/Menthol 20%-0.5% Spray 78 GM Cannister TOP PRN (11:27)
[2022-05-28] MEDS ORDERED: Acetaminophen 325 MG Tab PO PRN (11:27)
[2022-05-28] MEDS ORDERED: Witch Hazel Medicated Pads 40/Jar TOP PRN (11:27)
[2022-05-28] MEDS ORDERED: Ibuprofen 600 MG Tab PO PRN (11:27)
[2022-05-28] MEDS ORDERED: Docusate Sodium 100 MG Cap PO PRN (11:27)
[2022-05-28] MEDS: Citalopram 20 MG Tab PO SCH (16:43)
[2022-05-29 10:14] VITALS: BP 128/95; PULSE 92
[2022-05-29] MEDS: Citalopram 20 MG Tab PO SCH (10:15)
== END 2022-05-29 12:05 | disposition home or self-care (01) | DRG 560 ==
LOC: JD.OB 01:23 → JD.OBCHECK 01:23 → JD.OB 01:55 → OBSVTOIN 10:32 → JD.MS 10:32 → JD.OB 15:10
PROVIDERS: ADMIT Obstetrics & Gynecology; ATTEND Obstetrics & Gynecology
PROC: 10E0XZZ Delivery of Products of Conception, External Approach (ICD-10-PCS; principal; 2022-05-28)
PROC: 10907ZC Drainage of Amniotic Fluid, Therapeutic from Products of Conception, Via Natural or Artificial Opening (ICD-10-PCS; 2022-05-28)
PROC: 3E033VJ Introduction of Other Hormone into Peripheral Vein, Percutaneous Approach (ICD-10-PCS; 2022-05-28)
PROC: 3E0R3BZ Introduction of Anesthetic Agent into Spinal Canal, Percutaneous Approach (ICD-10-PCS; 2022-05-28)
PROC: 00HU33Z Insertion of Infusion Device into Spinal Canal, Percutaneous Approach (ICD-10-PCS; 2022-05-28)
DX: O99.62 Diseases of the digestive system complicating childbirth (principal); Z37.0 Single live birth; K21.9 Gastro-esophageal reflux disease without esophagitis; O70.0 First degree perineal laceration during delivery; O99.214 Obesity complicating childbirth; O99.344 Other mental disorders complicating childbirth; F41.9 Anxiety disorder, unspecified; Z3A.38 38 weeks gestation of pregnancy
CPT/HCPCS: 36415; 51702; 59025; 59409; 82565; 82570; 83615; 84156; 84450; 84460; 84520; 84550; 85025; 86592; 86850; 86900; 86901; A9270-GY; J2590; J3010; J3490; J7120

== ENCOUNTER 2024-03-21 07:38 | Emergency (ER) | payer OTHER ==
[2024-03-21] MEDS ORDERED: predniSONE 10 MG Tab PO ONE (08:38)
[2024-03-21] MEDS: Acetaminophen/oxyCODONE 325-5 MG Tab PO ONE (08:52)
[2024-03-21] MEDS: predniSONE 20 MG Tab PO ONE (08:53)
[2024-03-21 09:39] VITALS: BP 115/89; PULSE 97
== END 2024-03-21 09:15 | disposition home or self-care (01) ==
LOC: JD.ED 07:38
DX: S82.832A Other fracture of upper and lower end of left fibula, initial encounter for closed fracture (principal); E66.9 Obesity, unspecified; Z68.38 Body mass index [BMI] 38.0-38.9, adult; Z79.899 Other long term (current) drug therapy; X50.1XXA Overexertion from prolonged static or awkward postures, initial encounter
CPT/HCPCS: 73610; 99283; A9270; J7512; 99284

== ENCOUNTER 2025-05-22 07:02 | Inpatient (IN) | payer OTHER ==
[~2025-05-22 07:02] MED LIST changes: -Bupivacaine 0.25% 10 ML SDV ONE; +ePHEDrine 50 MG/ML SDV ONE
[2025-05-22] MEDS ORDERED: Ondansetron 4 MG/2 ML SDV IVPUSH PRN (07:10)
[2025-05-22] MEDS ORDERED: Sodium Chloride 0.9% 10 ML Syringe FLUSH PRN (07:10)
[2025-05-22] MEDS ORDERED: Nalbuphine 10 MG/1 ML Vial IVPUSH PRN (07:10)
[2025-05-22] MEDS ORDERED: Oxytocin/0.9 % Sodium Chloride 30 UNIT/500 ML BAG IV SCH (07:15)
[2025-05-22] MEDS: Lactated Ringers 1,000 ML IV SCH (07:51)
[2025-05-22] MEDS: Oxytocin/0.9 % Sodium Chloride 30 UNIT/500 ML BAG IV SCH (07:53)
[2025-05-22] MEDS: Penicillin G Potassium 5 MILLUNITS in Sodium Chloride 0.9% 100 ML IV SCH (08:00)
[2025-05-22 08:04] LABS: BASOPHILS ABSOLUTE AUTO 0.0 K/mm3 (0.0-0.2); BASOPHILS PERCENT AUTO 0.3 % (0.0-1.0); EOSINOPHILS ABSOLUTE AUTO 0.1 K/mm3 (0.0-0.4); EOSINOPHILS PERCENT AUTO 0.7 % (0.0-6.0); IMMATURE GRAN ABSOLUTE AUTO 0.11 K/mm3 (0.00-0.05); IMMATURE GRAN PERCENT AUTO 1.0 % (0.0-0.4); LYMPHOCYTES ABSOLUTE AUTO 1.8 K/mm3 (1.0-4.8); LYMPHOCYTES PERCENT AUTO 16.9 % (24.0-44.0); MEAN PLATELET VOLUME 9.7 fl (9.4-12.3); MONOCYTES ABSOLUTE AUTO 0.6 K/mm3 (0.0-0.8); MONOCYTES PERCENT AUTO 5.3 % (0.0-8.0); NEUTROPHILS ABSOLUTE AUTO 8.1 K/mm3 (1.8-7.7); NEUTROPHILS PERCENT AUTO 75.8 % (41.0-71.0); NRBC ABSOLUTE 0.00 (0.00-0.02); NRBC PERCENT 0.0 % (0.0-0.2); PLATELET COUNT,PLT 335 K/mm3 (150-400); RED BLOOD CELL COUNT 4.74 M/mm3 (4.10-5.30); WHITE BLOOD CELL COUNT,WBC 10.63 K/mm3 (3.9-11.3)
[2025-05-22 10:50] LABS: ALANINE AMINOTRANSFERASE,ALT 21.0 U/L (14-59); ASPARTATE AMNIOTRANSFERASE,AST 20.0 U/L (15-37); BLOOD UREA NITROGEN,BUN 8.0 mg/dL (7-18); CREATININE 0.7 mg/dL (0.55-1.02); EST CRCL DRUG DOSING (CG) 103.82 mL/min; ESTIMATED GFR 118.0 mL/min (>60); LACTATE DEHYDROGENASE,LDH 180.0 U/L (81-234)
[2025-05-22 11:08] LABS: CREATININE,URINE RAND 83.6 mg/dL (30.0-125.0); PROTEIN CREATININE RATIO,URINE 300.2 mg/g (0-149); PROTEIN,URINE RANDOM 25.1 mg/dL (0.0-11.8)
[2025-05-22] MEDS ORDERED: ePHEDrine 50 MG/ML SDV IVPUSH PRN (11:33)
[2025-05-22] MEDS ORDERED: diphenhydrAMINE 50 MG/ML SDV IVPUSH PRN (11:33)
[2025-05-22] MEDS: Bupivacaine/fentaNYL/NS 100 ML Bag EPIDUR PRN (11:38)
[2025-05-22] MEDS: Penicillin G Potassium 2.5 MILLUNITS in Sodium Chloride 0.9% 100 ML IV SCH (12:41)
[2025-05-22] MEDS: Sodium Chloride 0.9% 10 ML Syringe FLUSH SCH (17:10)
[2025-05-22] MEDS: Benzocaine/Menthol 20%-0.5% Spray 78 GM Cannister TOP PRN (20:19)
[2025-05-22] MEDS: Witch Hazel Medicated Pads 40/Jar TOP PRN (20:19)
[2025-05-23 20:36] VITALS: BP 133/86; PULSE 96
== END 2025-05-23 20:18 | disposition home or self-care (01) | DRG 807 ==
LOC: JD.OB 07:02 → OBSVTOIN 18:53 → JD.OB 18:54
PROVIDERS: ADMIT Obstetrics & Gynecology; ATTEND Obstetrics & Gynecology
PROC: 10E0XZZ Delivery of Products of Conception, External Approach (ICD-10-PCS; principal; 2025-05-22)
PROC: 10907ZC Drainage of Amniotic Fluid, Therapeutic from Products of Conception, Via Natural or Artificial Opening (ICD-10-PCS; 2025-05-22)
PROC: 3E033VJ Introduction of Other Hormone into Peripheral Vein, Percutaneous Approach (ICD-10-PCS; 2025-05-22)
PROC: 4A1HXCZ Monitoring of Products of Conception, Cardiac Rate, External Approach (ICD-10-PCS; 2025-05-22)
PROC: 0HQ9XZZ Repair Perineum Skin, External Approach (ICD-10-PCS; 2025-05-22)
PROC: 3E0R3BZ Introduction of Anesthetic Agent into Spinal Canal, Percutaneous Approach (ICD-10-PCS; 2025-05-22)
PROC: 00HU33Z Insertion of Infusion Device into Spinal Canal, Percutaneous Approach (ICD-10-PCS; 2025-05-22)
PROC: 10H07YZ Insertion of Other Device into Products of Conception, Via Natural or Artificial Opening (ICD-10-PCS; 2025-05-22)
DX: O99.824 Streptococcus B carrier state complicating childbirth (principal); Z37.0 Single live birth; Z3A.39 39 weeks gestation of pregnancy; O99.344 Other mental disorders complicating childbirth; F41.9 Anxiety disorder, unspecified; O66.0 Obstructed labor due to shoulder dystocia; O70.0 First degree perineal laceration during delivery
CPT/HCPCS: 36415; 51702; 59025; 59409; 82565; 82570; 83615; 84156; 84450; 84460; 84520; 84550; 85025; 86592; 86850; 86900; 86901; A9270-GY; J2540; J3490; J7120; J7999